=== PATIENT | female | born 1950 | race Caucasian/White ===

== ENCOUNTER → 2016-06-11 | Outpatient (CLI) | payer MEDICARE ==
--- NOTE | 2016-06-11 12:05 | US ---
EXAMINATION TYPE: US duplex aorta DATE OF EXAM: 06/11/2016 8:44 AM COMPARISON: NONE CLINICAL HISTORY: Z13.9 Screening AAA. EXAM MEASUREMENTS: Abdominal Aorta: Proximal: 2.1 x 2.2cm Mid: 1.7 x 1.9cm Distal: 1.5 x 1.5cm Bifurcation: RT: 0.9 x 0.9cm LT: 1.0 x 1.0cm TECHNOLOGIST IMPRESSION: No evidence of AAA at this time Aorta tapers normally from its visualized course. Doppler waveform appears normal. IMPRESSION: 1. Normal abdominal aorta screening ultrasound
== END | disposition home or self-care (01) ==
LOC: RADUSWWP 08:15
PROVIDERS: ATTEND Family Medicine
DX: Z13.6 Encounter for screening for cardiovascular disorders (principal)
CPT/HCPCS: 93979

== ENCOUNTER → 2018-12-30 | Outpatient (CLI) | payer MEDICARE ==
[~2018-12-30] MED LIST: REGADENOSON 0.4 MG/5 ML SYRINGE IV ONE
--- NOTE | 2018-12-30 10:53 | EST ---
EXERCISE STRESS AGE: 68 SEX: F HT: 5'10" WT: 190 PROTOCOL: Lexiscan Cardiolite Stress Test HEART RATE REST: 63 BLOOD PRESSURE REST: 145/90 MAXIMUM HEART RATE ACHIEVED: 97 MAXIMUM BLOOD PRESSURE: 184/74 INDICATIONS: Chest pain. CLINICAL INFORMATION: Baseline heart rate 63 beats per minute. Baseline blood pressure 145/90 mmHg. Baseline 12-lead ECG shows sinus rhythm with T-wave inversions inferolaterally the patient received Lexiscan infusion per protocol, no signal change in heart rate or blood pressure. However, there was pseudo normalization of the 12-lead ECG with T- waves becoming upright during the test. Patient remained asymptomatic. Nuclear portion will be reported separately. MMODL / IJN: [id number] /
--- NOTE | 2018-12-30 11:56 | NM ---
"EXAMINATION TYPE: NM stress lexiscan cardiolite DATE OF EXAM: 12/30/2018 COMPARISON: NONE HISTORY: Chest pain TECHNIQUE: After the intravenous administration of 10.9 mCi Tc 99m Sestamibi - Cardiolite resting SP ECT images acquired 65 minutes post injection. The patient received 0.4mg Lexiscan, 26.6 mCi Tc 99m Sestamibi - Stress images obtained [address] injection FINDINGS: Review of stress and rest SPECT images demonstrates decreased uptake along anterior wall left ventric le more so on stress images than on rest images towards the anteroapical location. Gated analysis sh ows normal wall motion with an estimated left ventricular ejection fraction of 65 %. 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 This message alert has been sent to Roman Cantor MD via the preferences provided by the clinician for the receipt of Radiology Critical Findings. [facility] [id number]."
== END | disposition home or self-care (01) ==
LOC: RADNMMAIN 07:25
PROVIDERS: ATTEND Family Medicine
DX: Z01.818 Encounter for other preprocedural examination (principal); R06.00 Dyspnea, unspecified
CPT/HCPCS: 93017; 78452; A9500; J2785

== ENCOUNTER 2018-12-31 11:15 | Inpatient (IN) | payer MEDICARE ==
[2018-12-31] MEDS ORDERED: NITROGLYCERIN OINT 1 INCH/GM PACKET TOPICAL STA (11:39)
[2018-12-31] MEDS ORDERED: ASPIRIN 81 MG PO STA (11:39)
--- NOTE | 2018-12-31 11:43 | ED ---
General Adult HPI - General Chief complaint: Chest Pain Stated complaint: Chest pain Time Seen by Provider: 12/31/18 11:23 Source: patient, family, RN notes reviewed Mode of arrival: ambulatory Limitations: no limitations - History of Present Illness Initial comments: Patient is a pleasant 68-year-old female presenting to emergency Department with complaints of chest discomfort. Onset of symptoms was a week ago. Patient has had 3 severe episodes. Patient has a episode this morning. Discomfort is near resolved at this point. Discomfort feels a pressure tightness in the sternal region. Patient does have some associated dyspnea and sweating. No nausea. Symptoms may be somewhat worse with exertion. No history of similar symptoms prior to the past week. Patient did see her doctor 5 or so days ago and was given antibiotics for sinus infection. Patient still has some sinus congestion. No leg pain or leg swelling. Patient is near symptom-free at this time. - Related Data Home Medications Medication Instructions Recorded Confirmed Atorvastatin Calcium [Lipitor] 10 mg PO HS 12/31/18 12/31/18 Carvedilol [Coreg] 25 mg PO BID 12/31/18 12/31/18 Furosemide [Lasix] 40 mg PO DAILY PRN 12/31/18 12/31/18 Letrozole 2.5 mg PO HS 12/31/18 12/31/18 Levofloxacin [Levaquin] 500 mg PO HS 12/31/18 12/31/18 Valsartan [Diovan] 160 mg PO HS 12/31/18 12/31/18 hydrALAZINE HCL [Apresoline] 25 mg PO BID 12/31/18 12/31/18 Allergies Allergy/AdvReac Type Severity Reaction Status Date / Time No Known Allergies Allergy Verified 12/31/18 12:16 Review of Systems ROS Statement: Those systems with pertinent positive or pertinent negative responses have been documented in the HPI. ROS Other: All systems not noted in ROS Statement are negative. Constitutional: Denies: fever Eyes: Denies: eye pain ENT: Denies: ear pain Respiratory: Reports: dyspnea. Denies: cough Cardiovascular: Reports: chest pain Endocrine: Denies: fatigue Gastrointestinal: Denies: abdominal pain, nausea, vomiting Genitourinary: Denies: dysuria Musculoskeletal: Denies: back pain Skin: Denies: rash Neurological: Denies: weakness Past Medical History Past Medical History: Cancer, Hypertension, Seizure Disorder Additional Past Medical History / Comment(s): renal & breast CA, vacular disease History of Any Multi-Drug Resistant Organisms: None Reported Past Surgical History: Appendectomy, Breast Surgery, Tubal Ligation Additional Past Surgical History / Comment(s): double mastectomy, R nephrectomy Past Psychological History: No Psychological Hx Reported Smoking Status: Never smoker Past Alcohol Use History: Rare Past Drug Use History: None Reported General Exam Limitations: no limitations General appearance: alert, in no apparent distress Head exam: Present: atraumatic Eye exam: Present: normal appearance Neck exam: Present: normal inspection Respiratory exam: Present: normal lung sounds bilaterally. Absent: chest wall tenderness Cardiovascular Exam: Present: regular rate, normal rhythm, normal heart sounds Expanded Peripheral pulses: 2+: Radial (R), Radial (L), Posterior Tibialis (R), Posterior Tibialis (L) GI/Abdominal exam: Present: soft. Absent: tenderness Extremities exam: Present: normal inspection. Absent: pedal edema, calf tenderness Neurological exam: Present: alert Psychiatric exam: Present: normal affect, normal mood Skin exam: Present: normal color Course Vital Signs 12/31/18 12/31/18 12/31/18 11:20 11:40 12:20 Temperature 97.5 F L Pulse Rate 59 L 64 57 L Respiratory 18 24 25 H Rate Blood Pressure 188/83 187/100 156/73 O2 Sat by Pulse 99 99 98 Oximetry 12/31/18 12/31/18 12:30 13:00 Temperature Pulse Rate 58 L 63 Respiratory 19 20 Rate Blood Pressure 156/73 175/91 O2 Sat by Pulse 99 Oximetry EKG Findings - EKG Comments: EKG Findings:: Sinus bradycardia 59. OK 154. QRS 86. QT 468. QTC 463. Normal axis. Septal Q waves. No acute ST change. Medical Decision Making - Medical Decision Making Patient reevaluated and resting comfortably in bed. Patient and family updated on results and plan. Dr. Cantor has been paged for admission of his patient. Heparin will be started. Cardiology will placed on consult. Admission orders written. - Lab Data Result diagrams: 12/31/18 11:45 12/31/18 11:45 Lab Results 12/31/18 12/31/18 12/31/18 Range/Units 11:45 11:45 11:45 WBC 7.6 (3.8-10.6) k/uL RBC 4.55 (3.80-5.40) m/uL Hgb 13.7 (11.4-16.0) gm/dL Hct 42.4 (34.0-46.0) % MCV 93.1 (80.0-100.0) fL MCH 30.0 (25.0-35.0) pg MCHC 32.3 (31.0-37.0) g/dL RDW 13.4 (11.5-15.5) % Plt Count 210 (150-450) k/uL Neutrophils % 56 % Lymphocytes % 30 % Monocytes % 8 % Eosinophils % 3 % Basophils % 1 % Neutrophils # 4.2 (1.3-7.7) k/uL Lymphocytes # 2.2 (1.0-4.8) k/uL Monocytes # 0.6 (0-1.0) k/uL Eosinophils # 0.3 (0-0.7) k/uL Basophils # 0.1 (0-0.2) k/uL PT 9.5 (9.0-12.0) sec INR 0.9 (<1.2) APTT 24.8 (22.0-30.0) sec D-Dimer 0.41 (<0.60) mg/L FEU Sodium 143 (137-145) mmol/L Potassium 4.2 (3.5-5.1) mmol/L Chloride 111 H (98-107) mmol/L Carbon Dioxide 22 (22-30) mmol/L Anion Gap 10 mmol/L BUN 19 H (7-17) mg/dL Creatinine 0.93 (0.52-1.04) mg/dL Est GFR (CKD-EPI)AfAm 73 (>60 ml/min/1.73 sqM) Est GFR (CKD-EPI)NonAf 63 (>60 ml/min/1.73 sqM) Glucose 95 (74-99) mg/dL Calcium 9.8 (8.4-10.2) mg/dL Magnesium 2.4 H (1.6-2.3) mg/dL Total Bilirubin 0.2 (0.2-1.3) mg/dL AST 21 (14-36) U/L ALT 22 (9-52) U/L Alkaline Phosphatase 95 (38-126) U/L Troponin I (0.000-0.034) ng/mL NT-Pro-B Natriuret Pep pg/mL Total Protein 7.6 (6.3-8.2) g/dL Albumin 4.3 (3.5-5.0) g/dL Amylase 77 (30-110) U/L Lipase 99 (23-300) U/L 12/31/18 12/31/18 Range/Units 11:45 11:45 WBC (3.8-10.6) k/uL RBC (3.80-5.40) m/uL Hgb (11.4-16.0) gm/dL Hct (34.0-46.0) % MCV (80.0-100.0) fL MCH (25.0-35.0) pg MCHC (31.0-37.0) g/dL RDW (11.5-15.5) % Plt Count (150-450) k/uL Neutrophils % % Lymphocytes % % Monocytes % % Eosinophils % % Basophils % % Neutrophils # (1.3-7.7) k/uL Lymphocytes # (1.0-4.8) k/uL Monocytes # (0-1.0) k/uL Eosinophils # (0-0.7) k/uL Basophils # (0-0.2) k/uL PT (9.0-12.0) sec INR (<1.2) APTT (22.0-30.0) sec D-Dimer (<0.60) mg/L FEU Sodium (137-145) mmol/L Potassium (3.5-5.1) mmol/L Chloride (98-107) mmol/L Carbon Dioxide (22-30) mmol/L Anion Gap mmol/L BUN (7-17) mg/dL Creatinine (0.52-1.04) mg/dL Est GFR (CKD-EPI)AfAm (>60 ml/min/1.73 sqM) Est GFR (CKD-EPI)NonAf (>60 ml/min/1.73 sqM) Glucose (74-99) mg/dL Calcium (8.4-10.2) mg/dL Magnesium (1.6-2.3) mg/dL Total Bilirubin (0.2-1.3) mg/dL AST (14-36) U/L ALT (9-52) U/L Alkaline Phosphatase (38-126) U/L Troponin I <0.012 (0.000-0.034) ng/mL NT-Pro-B Natriuret Pep 208 pg/mL Total Protein (6.3-8.2) g/dL Albumin (3.5-5.0) g/dL Amylase (30-110) U/L Lipase (23-300) U/L - Radiology Data Radiology results: image reviewed (Chest x-ray shows no acute process) Critical Care Time Critical Care Time: Yes Total Critical Care Time: 32 Disposition Clinical Impression: Unstable angina pectoris Disposition: ADMITTED IP TO THIS HOSP Is patient prescribed a controlled substance at d/c from ED?: No Referrals: Roman Cantor MD [Primary Care Provider] - 1-2 days Decision Time: 13:36
[2018-12-31 12:01] LABS: Basophils # (A) 0.1 k/uL (0-0.2); Basophils % (A) 1 %; Eosinophils # (A) 0.3 k/uL (0-0.7); Eosinophils % (A) 3 %; HCT 42.4 % (34.0-46.0); HGB 13.7 gm/dL (11.4-16.0); Lymphocytes # (A) 2.2 k/uL (1.0-4.8); Lymphocytes % (A) 30 %; MCHC 32.3 g/dL (31.0-37.0); MCV 93.1 fL (80.0-100.0); Mean Platelet Volume 8.3; Monocytes # (A) 0.6 k/uL (0-1.0); Monocytes % (A) 8 %; Neutrophils # (A) 4.2 k/uL (1.3-7.7); Neutrophils % (A) 56 %; Platelet Count 210 k/uL (150-450); RBC 4.55 m/uL (3.80-5.40); RDW 13.4 % (11.5-15.5); WBC 7.6 k/uL (3.8-10.6)
[2018-12-31 12:14] LABS: D-Dimer 0.41 mg/L FEU (<0.60); INR 0.9 (<1.2); Partial Thromboplastin Time 24.8 sec (22.0-30.0); Prothrombin Time 9.5 sec (9.0-12.0)
--- NOTE | 2018-12-31 12:29 | XR ---
EXAMINATION TYPE: XR chest 2V DATE OF EXAM: 12/31/2018 COMPARISON: NONE TECHNIQUE: PA and lateral views submitted. HISTORY: Chest pain FINDINGS: The lungs are clear and there is no pneumothorax, pleural effusion, or focal pneumonia. Hyperinflat ion suggests COPD. Diffuse osteopenia. Postsurgical change overlying the right chest. No overt failur e. Heart size normal. Arthropathy of the shoulders. Degenerative changes of the spine. IMPRESSION: 1. No acute process.
[2018-12-31 12:42] LABS: Albumin 4.3 g/dL (3.5-5.0); Calcium 9.8 mg/dL (8.4-10.2); Magnesium 2.4 mg/dL (1.6-2.3); Potassium 4.2 mmol/L (3.5-5.1); Total Bilirubin 0.2 mg/dL (0.2-1.3); Total Protein 7.6 g/dL (6.3-8.2)
[2018-12-31] MEDS ORDERED: HEPARIN SODIUM,PORCINE 5,000 UNIT/ML 1 ML VIAL IV ONE (13:36)
[2018-12-31] MEDS ORDERED: NITROGLYCERIN SL TABS 0.4 MG TAB SUBLINGUAL PRN (13:36)
[2018-12-31] MEDS ORDERED: HEPARIN SODIUM,PORCINE 5,000 UNIT/ML 1 ML VIAL IV PRN (13:36)
[2018-12-31] MEDS ORDERED: HEPARIN SOD,PORK IN 0.45% NACL 25,000 UNIT in 0.45% NACL 1 250ML.BAG IV SCH (13:45)
[2018-12-31] MEDS: ATORVASTATIN 80 MG TAB PO SCH (13:55)
[2018-12-31 15:05] VITALS: BMI 27.2
[2018-12-31] MEDS: NITROGLYCERIN OINT 1 INCH/GM PACKET TOPICAL SCH (17:32)
[2018-12-31] MEDS: CARVEDILOL 3.125 MG TAB PO SCH (17:32)
[2018-12-31] MEDS: SODIUM CHLORIDE 0.9% 1,000 ML IV SCH (17:36)
--- NOTE | 2018-12-31 17:48 | P.HPIM ---
History of Present Illness 68-year-old pleasant female came in emergency department with compensative chest discomfort patient was a sent back here because of positive stress and patient underwent stress test because of her constant the on and off chest pain as an outpatient. Patient chest pain is typical pressure-like sensation radiating to the left arm and neck. Patient denied any fever chills patient and nausea vomiting cough. Patient has in the lateral kidney patient will be started on IV fluids patient had history of renal cancer because of which patient had nephrectomy in the past. Patient is also on levofloxacin for sinusitis. Had 5 days of antibiotics so far. was also having exertional shortness of breath is not a smoker no pneumonia on the chest x-ray Review of Systems REVIEW OF SYSTEMS: CONSTITUTIONAL: No fever, no malaise, no fatigue. HEENT: No recent visual problems or hearing problems. Denied any sore throat. CARDIOVASCULAR: No orthopnea, PND, no palpitations, no syncope. PULMONARY: No shortness of breath, no cough, no hemoptysis. GASTROINTESTINAL: No diarrhea, no nausea, no vomiting, no abdominal pain. NEUROLOGICAL: No headaches, no weakness, no numbness. HEMATOLOGICAL: Denies any bleeding or petechiae. GENITOURINARY: Denies any burning micturition, frequency, or urgency. MUSCULOSKELETAL/RHEUMATOLOGICAL: Denies any joint pain, swelling, or any muscle pain. ENDOCRINE: Denies any polyuria or polydipsia. The rest of the 14-point review of systems is negative. Past Medical History Past Medical History: Cancer, Hypertension, Seizure Disorder Additional Past Medical History / Comment(s): renal & breast CA, vascular disease -bilat legs, last seizure when she was a child History of Any Multi-Drug Resistant Organisms: None Reported Past Surgical History: Appendectomy, Breast Surgery, Tubal Ligation Additional Past Surgical History / Comment(s): double mastectomy, R nephrectomy Past Anesthesia/Blood Transfusion Reactions: No Reported Reaction Past Psychological History: No Psychological Hx Reported Smoking Status: Never smoker Past Alcohol Use History: Rare Past Drug Use History: None Reported Medications and Allergies Home Medications Medication Instructions Recorded Confirmed Type Atorvastatin Calcium [Lipitor] 10 mg PO HS 12/31/18 12/31/18 History Carvedilol [Coreg] 25 mg PO BID 12/31/18 12/31/18 History Furosemide [Lasix] 40 mg PO DAILY PRN 12/31/18 12/31/18 History Letrozole 2.5 mg PO HS 12/31/18 12/31/18 History Levofloxacin [Levaquin] 500 mg PO HS 12/31/18 12/31/18 History Valsartan [Diovan] 160 mg PO HS 12/31/18 12/31/18 History hydrALAZINE HCL [Apresoline] 25 mg PO BID 12/31/18 12/31/18 History Allergies Allergy/AdvReac Type Severity Reaction Status Date / Time No Known Allergies Allergy Verified 12/31/18 12:16 Physical Exam Vitals: Vital Signs Temp Pulse Pulse Resp BP BP Pulse Ox 12/31/18 16:00 70 16 126/75 12/31/18 14:29 97.3 F L 70 16 192/91 97 12/31/18 14:02 62 18 163/99 98 12/31/18 13:00 63 20 175/91 12/31/18 12:30 58 L 19 156/73 99 12/31/18 12:20 57 L 25 H 156/73 98 12/31/18 11:40 64 24 187/100 99 12/31/18 11:20 97.5 F L 59 L 18 188/83 99 Intake and Output 12/31/18 12/31/18 12/31/18 06:59 14:59 22:59 Other: Voiding Method Toilet Weight 86.183 kg PHYSICAL EXAMINATION: GENERAL: The patient is alert and oriented x3, not in any acute distress. Well developed, well nourished. HEENT: Pupils are round and equally reacting to light. EOMI. No scleral icterus. No conjunctival pallor. Normocephalic, atraumatic. No pharyngeal erythema. No thyromegaly. CARDIOVASCULAR: S1 and S2 present. No murmurs, rubs, or gallops. PULMONARY: Chest is clear to auscultation, no wheezing or crackles. ABDOMEN: Soft, nontender, nondistended, normoactive bowel sounds. No palpable organomegaly. MUSCULOSKELETAL: No joint swelling or deformity. EXTREMITIES: No cyanosis, clubbing, or pedal edema. NEUROLOGICAL: Gross neurological examination did not reveal any focal deficits. SKIN: No rashes. Results CBC & Chem 7: 12/31/18 11:45 12/31/18 11:45 Labs: Abnormal Lab Results - Last 24 Hours (Table) 12/31/18 Range/Units 11:45 Chloride 111 H (98-107) mmol/L BUN 19 H (7-17) mg/dL Magnesium 2.4 H (1.6-2.3) mg/dL Thrombosis Risk Factor Assmnt - Choose All That Apply Any of the Below Risk Factors Present?: Yes Each Factor Represents 1 point: Obesity (BMI >25) Other Risk Factors: Yes Each Risk Factor Represents 2 Points: Age 61-74 years Thrombosis Risk Factor Assessment Total Risk Factor Score: 3 Thrombosis Risk Factor Assessment Level: Moderate Risk Assessment and Plan Plan: -Positive stress test, possible unstable angina: Patient will undergo cardiac catheterization tomorrow patient will be started on IV fluids, nitroglycerin and beta yosvany along with aspirin. -Sinusitis: Patient will be continued on levofloxacin will need the antibiotic only today and tomorrow -Hypertension resume his her home medications except for Lasix as patient is receiving IV fluids at this time -History of renal cell cancer status post nephrectomy and patient has unilateral kidney -Seizure disorder -Hyperlipidemia
[2018-12-31] MEDS ORDERED: NON-FORMULARY DRUG (Carvedilol [Coreg] 25 MG) PO SCH (21:00)
[2018-12-31] MEDS ORDERED: ATORVASTATIN 10 MG TAB PO SCH (21:00)
[2018-12-31] MEDS ORDERED: ACETAMINOPHEN TAB 325 MG TAB PO STA (21:34)
[2018-12-31] MEDS: LEVOFLOXACIN 500 MG TAB PO SCH (21:35)
[2018-12-31] MEDS: VALSARTAN 160 MG TAB PO SCH (21:35)
[2018-12-31] MEDS: LETROZOLE 2.5 MG TAB PO SCH (21:35)
[2019-01-01] MEDS ORDERED: hydrALAZINE HCL 20 MG/ML 1 ML VIAL IVP PRN (00:53)
[2019-01-01] MEDS: NITROGLYCERIN OINT 1 INCH/GM PACKET TOPICAL SCH ×2 (02:32→06:45)
[2019-01-01 04:36] LABS: Mean Platelet Volume 8.7; Platelet Count 193 k/uL (150-450)
[2019-01-01] MEDS ORDERED: ACETAMINOPHEN TAB 325 MG TAB PO STA (06:44)
[2019-01-01] MEDS: SODIUM CHLORIDE 0.9% 1,000 ML IV SCH ×2 (06:45→20:48)
[2019-01-01] MEDS ORDERED: ASPIRIN 325 MG TAB PO SCH (09:00)
[2019-01-01] MEDS ORDERED: ALPRAZolam 0.5 MG TAB PO PRN (09:38)
[2019-01-01] MEDS ORDERED: ALPRAZolam 0.25 MG TAB PO PRN (09:38)
[2019-01-01] MEDS: ATORVASTATIN 80 MG TAB PO SCH (09:39)
[2019-01-01] MEDS: CARVEDILOL 12.5 MG TAB PO SCH ×2 (09:40→17:33)
[2019-01-01] MEDS ORDERED: ASPIRIN 81 MG PO SCH (09:45)
--- NOTE | 2019-01-01 09:51 | P.CRDCN ---
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 Brock/Clarice Gonzalez/Jackie Dumont within 1-2 weeks post cath Past Medical History Past Medical History: Cancer, Hypertension, Seizure Disorder Additional Past Medical History / Comment(s): renal & breast CA, vascular disease -bilat legs, last seizure when she was a child History of Any Multi-Drug Resistant Organisms: None Reported Past Surgical History: Appendectomy, Breast Surgery, Tubal Ligation Additional Past Surgical History / Comment(s): double mastectomy, R nephrectomy Past Anesthesia/Blood Transfusion Reactions: No Reported Reaction Past Psychological History: No Psychological Hx Reported Smoking Status: Never smoker Past Alcohol Use History: Rare Past Drug Use History: None Reported Medications and Allergies Home Medications Medication Instructions Recorded Confirmed Type Atorvastatin Calcium [Lipitor] 10 mg PO HS 12/31/18 12/31/18 History Carvedilol [Coreg] 25 mg PO BID 12/31/18 12/31/18 History Furosemide [Lasix] 40 mg PO DAILY PRN 12/31/18 12/31/18 History Letrozole 2.5 mg PO HS 12/31/18 12/31/18 History Levofloxacin [Levaquin] 500 mg PO HS 12/31/18 12/31/18 History Valsartan [Diovan] 160 mg PO HS 12/31/18 12/31/18 History hydrALAZINE HCL [Apresoline] 25 mg PO BID 12/31/18 12/31/18 History Allergies Allergy/AdvReac Type Severity Reaction Status Date / Time No Known Allergies Allergy Verified 12/31/18 12:16 Physical Exam Vitals: Vital Signs Temp Pulse Pulse Pulse Resp BP BP 01/01/19 08:00 98.1 F 70 18 172/79 01/01/19 07:26 01/01/19 03:42 97.8 F 73 16 176/76 01/01/19 00:00 98 F 69 16 185/97 12/31/18 20:00 97.8 F 66 17 133/77 12/31/18 16:00 70 16 126/75 12/31/18 14:29 97.3 F L 70 16 192/91 12/31/18 14:02 62 18 163/99 12/31/18 13:00 63 20 175/91 12/31/18 12:30 58 L 19 156/73 12/31/18 12:20 57 L 25 H 156/73 12/31/18 11:40 64 24 187/100 12/31/18 11:20 97.5 F L 59 L 18 188/83 Pulse Ox 01/01/19 08:00 98 01/01/19 07:26 97 01/01/19 03:42 98 01/01/19 00:00 94 L 12/31/18 20:00 95 12/31/18 16:00 12/31/18 14:29 97 12/31/18 14:02 98 12/31/18 13:00 12/31/18 12:30 99 12/31/18 12:20 98 12/31/18 11:40 99 12/31/18 11:20 99 Intake and Output 12/31/18 01/01/19 01/01/19 22:59 06:59 14:59 Intake Total 73.645 62.331 Balance 73.645 62.331 Intake: Intake, IV Titration 73.645 62.331 Amount Heparin Sod,Pork in 0.45% 73.645 62.331 NaCl 25,000 unit In 0.45 % NaCl 1 250ml.bag @ 11.6 UNITS/KG/HR 9.997 mls/hr IV .Q24H [facility] Rx#: [id number] Other: Voiding Method Toilet Toilet # Voids 2 Results 01/01/19 03:46 12/31/18 11:45 Cardiac Enzymes 12/31/18 12/31/18 12/31/18 Range/Units 11:45 11:45 18:31 AST 21 (14-36) U/L Troponin I <0.012 <0.012 (0.000-0.034) ng/mL 12/31/18 Range/Units 23:29 AST (14-36) U/L Troponin I <0.012 (0.000-0.034) ng/mL Coagulation 12/31/18 12/31/18 01/01/19 Range/Units 11:45 20:27 03:46 PT 9.5 (9.0-12.0) sec APTT 24.8 92.8 H 40.6 H (22.0-30.0) sec CBC 12/31/18 01/01/19 Range/Units 11:45 03:46 WBC 7.6 (3.8-10.6) k/uL RBC 4.55 (3.80-5.40) m/uL Hgb 13.7 (11.4-16.0) gm/dL Hct 42.4 (34.0-46.0) % Plt Count 210 193 (150-450) k/uL Comprehensive Metabolic Panel 12/31/18 Range/Units 11:45 Sodium 143 (137-145) mmol/L Potassium 4.2 (3.5-5.1) mmol/L Chloride 111 H (98-107) mmol/L Carbon Dioxide 22 (22-30) mmol/L BUN 19 H (7-17) mg/dL Creatinine 0.93 (0.52-1.04) mg/dL Glucose 95 (74-99) mg/dL Calcium 9.8 (8.4-10.2) mg/dL AST 21 (14-36) U/L ALT 22 (9-52) U/L Alkaline Phosphatase 95 (38-126) U/L Total Protein 7.6 (6.3-8.2) g/dL Albumin 4.3 (3.5-5.0) g/dL Current Medications Generic Name Dose Route Start Last Admin Trade Name Freq PRN Reason Stop Dose Admin Alprazolam 0.25 mg 01/01/19 09:38 Xanax PO Q6HR PRN Mild Anxiety Alprazolam 0.5 mg 01/01/19 09:38 Xanax PO Q6HR PRN Moderate Anxiety Aspirin 243 mg 01/01/19 09:45 Aspirin PO DAILY CARMELITA Atorvastatin Calcium 80 mg 12/31/18 13:45 01/01/19 09:39 Lipitor PO 80 mg DAILY CARMELITA Administration Carvedilol 25 mg 01/01/19 09:15 01/01/19 09:40 Coreg PO 25 mg BID-W/MEALS CARMELITA Administration Heparin Sodium (Porcine) 0 unit 12/31/18 13:36 Heparin IV Q6HR PRN Low PTT Protocol Sodium Chloride 1,000 mls @ 75 mls/hr 12/31/18 17:00 01/01/19 06:45 Saline 0.9% IV Not Given .[id number] CARMELITA Letrozole 2.5 mg 12/31/18 21:00 12/31/18 21:35 Femara PO 2.5 mg HS CARMELITA Administration Levofloxacin 500 mg 12/31/18 21:00 12/31/18 21:35 Levaquin PO 01/04/19 21:01 500 mg HS CARMELITA Administration Nifedipine 60 mg 01/01/19 09:15 01/01/19 09:40 Procardia Xl PO 60 mg DAILY CARMELITA Administration Nitroglycerin 0.4 mg 12/31/18 13:36 Nitrostat SUBLINGUAL Q5M PRN Chest Pain Sodium Chloride 10 ml 12/31/18 21:00 01/01/19 09:41 Saline Flush IV 10 ml BID CARMELITA Administration Valsartan 160 mg 12/31/18 21:00 12/31/18 21:35 Diovan PO 160 mg HS CARMELITA Administration Intake and Output 12/31/18 01/01/19 01/01/19 22:59 06:59 14:59 Intake Total 73.645 62.331 Balance 73.645 62.331 Intake: Intake, IV Titration 73.645 62.331 Amount Heparin Sod,Pork in 0.45% 73.645 62.331 NaCl 25,000 unit In 0.45 % NaCl 1 250ml.bag @ 11.6 UNITS/KG/HR 9.997 mls/hr IV .Q24H [facility] Rx#: [id number] Other: Voiding Method Toilet Toilet # Voids 2 01/01/19 03:46 12/31/18 11:45
[2019-01-01 10:15] LABS: Cholesterol 126 mg/dL (<200); HDL Cholesterol 54 mg/dL (40-60); LDL Cholesterol,Calculated 46 mg/dL (0-99); Triglycerides 132 mg/dL (<150)
--- NOTE | 2019-01-01 11:16 | ECHOF ---
Referral Reason:abn stress test, sob MEASUREMENTS -------- HEIGHT: 177.8 cm WEIGHT: 86.2 kg BP: 192/91 RVIDd: 3.1 cm (< 3.3) IVSd: 1.2 cm (0.6 - 1.1) LVIDd: 4.1 cm (3.9 - 5.3) LVPWd: 1.1 cm (0.6 - 1.1) IVSs: 1.5 cm LVIDs: 3.0 cm LVPWs: 1.4 cm LA Diam: 3.1 cm (2.7 - 3.8) LAESV Index (A-L): 15.19 ml/m Ao Diam: 2.8 cm (2.0 - 3.7) AV Cusp: 1.7 cm (1.5 - 2.6) MV EXCURSION: 11.540 mm (> 18.000) MV EF SLOPE: 35 mm/s (70 - 150) EPSS: 1.0 cm MV E Noam: 0.97 m/s MV DecT: 319 ms MV A Noam: 1.18 m/s MV E/A Ratio: 0.82 AV maxP.15 mmHg AV maxP.15 mmHg AV meanP.85 mmHg RAP: 5.00 mmHg RVSP: 25.60 mmHg FINDINGS -------- Sinus rhythm. This was a technically adequate study. The left ventricular size is normal. There is borderline concentric left ventricular hypertrophy. Overall left ventricular systolic function is normal with, an EF between 60 - 65 %. The right ventricle is normal in size. Normal LA size by volume 22+/-6 ml/m2. The right atrium is normal in size. Interatrial and interventricular septum intact. The aortic valve is trileaflet and appears structurally normal. The mitral valve leaflets are mildly thickened. Mild tricuspid regurgitation present. Right ventricular systolic pressure is normal at < 35 mmHg. Trace/mild (physiologic) pulmonic regurgitation. The aortic root size is normal. Normal inferior vena cava with normal inspiratory collapse consistent with estimated right atrial pre ssure of 5 mmHg. There is no pericardial effusion. CONCLUSIONS -------- 1. Sinus rhythm. 2. This was a technically adequate study. 3. The left ventricular size is normal. 4. There is borderline concentric left ventricular hypertrophy. 5. Overall left ventricular systolic function is normal with, an EF between 60 - 65 %. 6. The right ventricle is normal in size. 7. Normal LA size by volume 22+/-6 ml/m2. 8. The right atrium is normal in size. 9. Interatrial and interventricular septum intact. 10. The aortic valve is trileaflet and appears structurally normal. 11. The mitral valve leaflets are mildly thickened. 12. Mild tricuspid regurgitation present. 13. Right ventricular systolic pressure is normal at < 35 mmHg. 14. Trace/mild (physiologic) pulmonic regurgitation. 15. The aortic root size is normal. 16. Normal inferior vena cava with normal inspiratory collapse consistent with estimated right atrial pressure of 5 mmHg. 17. There is no pericardial effusion. EAR MACHINE OPERATOR: Dona Bradshaw RDCS
--- NOTE | 2019-01-01 12:17 | US ---
EXAMINATION TYPE: US renal artery duplex complet DATE OF EXAM: 01/01/2019 COMPARISON: NONE CLINICAL HISTORY: uncontrolled htn. MEASUREMENTS: RENAL SIZE: Rt Kidney: Surgically absent Lt Kidney: 11.9 x 5.9 x 5.2cm RESISTANCE INDEX Right: Surgically absent Left: 0.69 RA/AO RATIO (< 3.5 ) Right: Surgically absent Left: 1.9 RA VELOCITY ( < 180 cm/s) Right: Surgically absent Left: 289 cm/s Unable to visualized distal renal artery due to overlying bowel gas. Elevated velocity seen proximall y, however ratio is normal. Otherwise wnl. IMPRESSION: 1. Limited exam suggest previous right nephrectomy. Resistive index on the left measures within ina l limits.
[2019-01-01] MEDS ORDERED: fentaNYL (PF) 50 MCG/ML 2 ML AMP IV ONE (12:25)
[2019-01-01] MEDS ORDERED: MIDAZOLAM (PF) 2 MG/2 ML VIAL IVP ONE (12:25)
[2019-01-01] MEDS ORDERED: LIDOCAINE 1% INJ 10MG/ML (20 ML MDV) SQ ONE (12:28)
[2019-01-01] MEDS ORDERED: IV FLUID CONTINUATION 500 ML IV ONE (12:32)
[2019-01-01] MEDS ORDERED: NITROGLYCERIN SL TABS 0.4 MG TAB SUBLINGUAL ONE (12:37)
[2019-01-01] MEDS ORDERED: IOPAMIDOL-370 100ML BTL INJ ONE (12:48)
--- NOTE | 2019-01-01 13:16 | CC ---
CARDIAC CATHETERIZATION REPORT Mrs. Elias is a 68-year-old female who has been having symptoms of exertional shortness of breath. The patient's stress test showed evidence of anterior apical ischemia. In view of that, the patient was recommended to have a cardiac catheterization for definitive diagnosis. PROCEDURE: The right groin was prepped and draped in the usual manner and the right femoral artery was entered using Seldinger technique under ultrasound guidance and micropuncture needle. A #6-[place] sheath was placed in. Selective coronary angiography was then performed in multiple projections and the left ventricular pressures were obtained. Patient tolerated the procedure well. Sheath was removed and good hemostasis was achieved with the use of Angio-Seal. Moderate sedation was used. Total sedation time was 19 minutes. Left main coronary artery is normal and patent. LAD is a good caliber blood vessel and gives rise to small size diagonal branch. There is a minimal irregularity in the LAD. There was a good size intermediate branch which is normal. Circumflex coronary artery is a codominant distribution and gives rise to good size PLV and the PDA branch appears normal. Right coronary artery also is codominant distribution and gives rise to small size PDA and it is normal. The left ventricular end-diastolic pressure is 4 to 6 mmHg prior to angiography. No gradient is noted across the aortic valve. FINAL IMPRESSION: This study shows minimal irregularity in LAD. Circumflex and right coronary arteries are normal. Left ventricular end-diastolic pressure is normal. RECOMMENDATION: Recommend maximize medical treatment and blood pressure control. MMODL / IJN: [id number] /
[2019-01-01] MEDS: ACETAMINOPHEN TAB 325 MG TAB PO PRN ×2 (13:21→20:50)
[2019-01-01] MEDS ORDERED: RX INFO: IV CONTRAST WAS GIVEN 1 EACH MISC MISCELLANE PRN (13:58)
--- NOTE | 2019-01-01 14:39 | P.PN ---
Subjective 68-year-old the female was admitted for positive stress test patient underwent therapeutic ablation which did not show any significant atherosclerotic occlusive disease that will need intervention.patient is being hydrated because of unilateral kidney and the cardiology is according hydration tonight and possibility of discharge tomorrow Constitutional: Denied any fatigue denied any fever. Cardio vascular: denied any chest pain, palpitations Gastrointestinal denied any nausea vomiting Pulmonary: Denied any shortness of breath cough Neurologic denied any new focal deficits All inpatient medications were reviewed and appropriate changes in these medications as dictated in the interval history and assessment and plan. Objective - Vital Signs Vital signs: Vital Signs Temp 98.0 F 01/01/19 12:00 Pulse 61 01/01/19 12:00 Resp 16 01/01/19 12:00 BP 157/86 01/01/19 12:00 Pulse Ox 98 01/01/19 12:00 Intake & Output 12/31/18 01/01/19 01/01/19 18:59 06:59 18:59 Intake Total 135.976 50 Balance 135.976 50 Weight 86.183 kg Intake: IV 50 Intake, IV Titration 135.976 Amount Heparin Sod,Pork in 0.45% 135.976 NaCl 25,000 unit In 0.45 % NaCl 1 250ml.bag @ 11.6 UNITS/KG/HR 9.997 mls/hr IV .Q24H [facility], [facility]–1983 Rx#: [id number] Other: Voiding Method Toilet Toilet Toilet # Voids 2 - Exam PHYSICAL EXAMINATION: GENERAL: The patient is alert and oriented x3, not in any acute distress. Well developed, well nourished. HEENT: Pupils are round and equally reacting to light. EOMI. No scleral icterus. No conjunctival pallor. Normocephalic, atraumatic. No pharyngeal erythema. No thyromegaly. CARDIOVASCULAR: S1 and S2 present. No murmurs, rubs, or gallops. PULMONARY: Chest is clear to auscultation, no wheezing or crackles. ABDOMEN: Soft, nontender, nondistended, normoactive bowel sounds. No palpable organomegaly. MUSCULOSKELETAL: No joint swelling or deformity. EXTREMITIES: No cyanosis, clubbing, or pedal edema. NEUROLOGICAL: Gross neurological examination did not reveal any focal deficits. SKIN: No rashes. - Labs CBC & Chem 7: 01/01/19 03:46 12/31/18 11:45 Labs: Abnormal Lab Results - Last 24 Hours (Table) 12/31/18 01/01/19 Range/Units 20:27 03:46 APTT 92.8 H 40.6 H (22.0-30.0) sec Assessment and Plan Plan: -Positive stress test, and chest pain, cardiac catheterization did not reveal any significant atherosclerotic coronary vascular disease -Sinusitis: Patient will be continued on levofloxacin , will not require any antibiotics upon discharge -Hypertension resumed her home medications except for Lasix as patient is receiving IV fluids at this time -History of renal cell cancer status post nephrectomy and patient has unilateral kidney -Seizure disorder -Hyperlipidemia
--- NOTE | 2019-01-01 14:44 | P.CRDCN ---
History of Present Illness History of present illness: This is a pleasant 68-year-old female past medical history significant for breast cancer status post mastectomy, renal cancer status post right nephrectomy, hypertension and seizure disorder. She denies history of coronary artery disease. We have been asked to see her in consultation secondary to abnormal stress test with chest pain suggestive of unstable angina. She states since April she has been feeling shortness of breath with exertion. Minimal activity such as walking around her neighborhood are up and down stairs cause her significant shortness of breath. She attributed this to her recent diagnosis of renal cancer. However her symptoms continued to persist and became much more frequent in nature. She then started experiencing heaviness in her chest after that shortness of breath. She saw her primary care physician underwent outpatient stress testing which revealed evidence of reversible ischemia in the anterior distribution. For this reason she was sent to the hospital for further evaluation. She is seen and examined resting comfortably in bed in no acute distress. She complains only of a headache. She denies active chest discomfort, shortness of breath, dizziness or palpitations. EKG reveals sinus mechanism with poor R-wave progression. Chest x-ray negative for an acute cardiopulmonary process. Laboratory data reviewed, WBC 7.6, hemoglobin 13.7, platelets 193, d-dimer 0.41, sodium 143, potassium 4.2, creatinine 0.93, magnesium 2.4, cardiac enzymes negative 3, proBNP 8, LDL 46. Daily current cardiac medications include Coreg 25 mg twice a day, Lasix 40 mg daily as needed, valsartan 160 mg daily, hydralazine 25 mg twice a day and a torvastatin 10 mg daily. At the time of my exam: CONSTITUTIONAL: Denies fever. Denies chills. EYES: Denies blurred vision. Denies vision changes. Denies eye pain. EARS, NOSE, MOUTH & THROAT: Denies headache. Denies sore throat. Denies ear pain. CARDIOVASCULAR: Denies chest pain. Denies shortness of breath. Denies orthopnea. Denies PND. Denies palpitations. RESPIRATORY: Denies cough. GASTROINTESTINAL: Denies abdominal pain. Denies diarrhea. Denies constipation. Denies nausea. Denies vomiting. MUSCULOSKELETAL: Denies myalgias. INTEGUMENTARY: Denies pruitis. Denies rash. NEUROLOGIC: Denies numbness. Denies tingling. Denies weakness. PSYCHIATRIC: Denies anxiety. Denies depression. ENDOCRINE: Denies fatigue. Denies weight change. Denies polydipsia. Denies polyurina. GENITOURINARY: Denies burning, hematuria or urgency with micturation. HEMATOLOGIC: Denies history of anemia. Denies bleeding. Blood pressure 157/86 heart rate 61 afebrile maintaining oxygen saturation on room air GENERAL: This is a 68-year-old female in no apparent distress at the time of my examination. HEENT: Head is atraumatic, normocephalic. Pupils are equal, round. Sclerae anicteric. Conjunctivae are clear. Mucous membranes of the mouth are moist. Neck is supple. There is no jugular venous distention. No carotid bruit is heard. LUNGS: Clear to auscultation no wheezes, rales or rhonchi. No chest wall t enderness is noted on palpation or with deep breathing. HEART: Regular rate and rhythm without murmurs, rubs or gallops. S1 and S2 heard. ABDOMEN: Soft, nontender. Bowel sounds are heard. No organomegaly noted. EXTREMITIES: No evidence of peripheral edema and no calf tenderness noted. VASCULAR: Radial and dorsalis pedis pulses palpated, no evidence of clubbing. NEUROLOGIC: Patient is awake, alert and oriented x3. ASSESSMENT Unstable angina Hypertension, uncontrolled History of renal carcinoma status post nephrectomy History of breast cancer status post mastectomy Dyslipidemia PLAN Recommend proceeding with cardiac catheterization. I have discussed the risks, benefits and alternative therapies for the above-mentioned procedure and for both sedation/analgesia as well as necessary blood product administration, if indicated, as they pertain to this patient. The patient has indicated un derstanding and acceptance of the risks and procedures discussed. Lengthy discussion had with the patient and her regarding the risk of kidney damage with contrast use. He understands this risk. Questions have been answered appropriately and the patient and her agree to move forward with the above stated procedure. Hydrate the patient and normal saline 75 mL per hour before the procedure and thereafter for 24 hours. Repeat BMP in the morning. Discontinue when necessary hydralazine and initiated on Procardia XL 60 mg daily. Continue carvedilol and valsartan as previously ordered. Obtain renal artery duplex. Further recommendations to follow based upon clinical course. Thank you kindly for this consultation. Nurse Practitioner note has been reviewed, I agree with a documented findings and plan of care. Patient was seen and examined. Past Medical History Past Medical History: Cancer, Hypertension, Seizure Disorder Additional Past Medical History / Comment(s): renal & breast CA, vascular disease -bilat legs, last seizure when she was a child History of Any Multi-Drug Resistant Organisms: None Reported Past Surgical History: Appendectomy, Breast Surgery, Tubal Ligation Additional Past Surgical History / Comment(s): double mastectomy, R nephrectomy Past Anesthesia/Blood Transfusion Reactions: No Reported Reaction Past Psychological History: No Psychological Hx Reported Smoking Status: Never smoker Past Alcohol Use History: Rare Past Drug Use History: None Reported Medications and Allergies Home Medications Medication Instructions Recorded Confirmed Type Atorvastatin Calcium [Lipitor] 10 mg PO HS 12/31/18 12/31/18 History Carvedilol [Coreg] 25 mg PO BID 12/31/18 12/31/18 History Furosemide [Lasix] 40 mg PO DAILY PRN 12/31/18 12/31/18 History Letrozole 2.5 mg PO HS 12/31/18 12/31/18 History Levofloxacin [Levaquin] 500 mg PO HS 12/31/18 12/31/18 History Valsartan [Diovan] 160 mg PO HS 12/31/18 12/31/18 History hydrALAZINE HCL [Apresoline] 25 mg PO BID 12/31/18 12/31/18 History Allergies Allergy/AdvReac Type Severity Reaction Status Date / Time No Known Allergies Allergy Verified 12/31/18 12:16 Physical Exam Vitals: Vital Signs Temp Pulse Pulse Pulse Resp BP BP 01/01/19 07:26 01/01/19 03:42 97.8 F 73 16 176/76 01/01/19 00:00 98 F 69 16 185/97 12/31/18 20:00 97.8 F 66 17 133/77 12/31/18 16:00 70 16 126/75 12/31/18 14:29 97.3 F L 70 16 192/91 12/31/18 14:02 62 18 163/99 12/31/18 13:00 63 20 175/91 12/31/18 12:30 58 L 19 156/73 12/31/18 12:20 57 L 25 H 156/73 12/31/18 11:40 64 24 187/100 12/31/18 11:20 97.5 F L 59 L 18 188/83 Pulse Ox 01/01/19 07:26 97 01/01/19 03:42 98 01/01/19 00:00 94 L 12/31/18 20:00 95 12/31/18 16:00 12/31/18 14:29 97 12/31/18 14:02 98 12/31/18 13:00 12/31/18 12:30 99 12/31/18 12:20 98 12/31/18 11:40 99 12/31/18 11:20 99 Intake and Output 12/31/18 01/01/19 01/01/19 22:59 06:59 14:59 Intake Total 73.645 62.331 Balance 73.645 62.331 Intake: Intake, IV Titration 73.645 62.331 Amount Heparin Sod,Pork in 0.45% 73.645 62.331 NaCl 25,000 unit In 0.45 % NaCl 1 250ml.bag @ 11.6 UNITS/KG/HR 9.997 mls/hr IV .Q24H [facility] Rx#: [id number] Other: Voiding Method Toilet Toilet # Voids 2 Results 01/01/19 03:46 12/31/18 11:45 Cardiac Enzymes 12/31/18 12/31/18 12/31/18 Range/Units 11:45 11:45 18:31 AST 21 (14-36) U/L Troponin I <0.012 <0.012 (0.000-0.034) ng/mL 12/31/18 Range/Units 23:29 AST (14-36) U/L Troponin I <0.012 (0.000-0.034) ng/mL Coagulation 12/31/18 12/31/18 01/01/19 Range/Units 11:45 20:27 03:46 PT 9.5 (9.0-12.0) sec APTT 24.8 92.8 H 40.6 H (22.0-30.0) sec CBC 12/31/18 01/01/19 Range/Units 11:45 03:46 WBC 7.6 (3.8-10.6) k/uL RBC 4.55 (3.80-5.40) m/uL Hgb 13.7 (11.4-16.0) gm/dL Hct 42.4 (34.0-46.0) % Plt Count 210 193 (150-450) k/uL Comprehensive Metabolic Panel 12/31/18 Range/Units 11:45 Sodium 143 (137-145) mmol/L Potassium 4.2 (3.5-5.1) mmol/L Chloride 111 H (98-107) mmol/L Carbon Dioxide 22 (22-30) mmol/L BUN 19 H (7-17) mg/dL Creatinine 0.93 (0.52-1.04) mg/dL Glucose 95 (74-99) mg/dL Calcium 9.8 (8.4-10.2) mg/dL AST 21 (14-36) U/L ALT 22 (9-52) U/L Alkaline Phosphatase 95 (38-126) U/L Total Protein 7.6 (6.3-8.2) g/dL Albumin 4.3 (3.5-5.0) g/dL Current Medications Generic Name Dose Route Start Last Admin Trade Name Freq PRN Reason Stop Dose Admin Aspirin 325 mg 01/01/19 09:00 Aspirin PO DAILY [facility] Atorvastatin Calcium 80 mg 12/31/18 13:45 12/31/18 13:55 Lipitor PO 80 mg DAILY [facility] Administration Carvedilol 3.125 mg 12/31/18 17:30 12/31/18 17:32 Coreg PO 3.125 mg BID-W/MEALS [facility] Administration Heparin Sodium (Porcine) 0 unit 12/31/18 13:36 Heparin IV Q6HR PRN Low PTT Protocol Hydralazine HCl 10 mg 01/01/19 00:53 01/01/19 02:55 Apresoline IVP 10 mg Q6HR PRN Administration Blood Pressure - High Heparin Sodium/Sodium Chloride 250 mls @ 9.997 mls/hr 12/31/18 13:45 01/01/19 04:56 25,000 unit/ Sodium Chloride IV 11.6 units/kg/hr .Q24H [facility] 9.997 mls/hr Titration Protocol 11.6 UNITS/KG/HR Sodium Chloride 1,000 mls @ 75 mls/hr 12/31/18 17:00 01/01/19 06:45 Saline 0.9% IV Not Given .[id number] [facility] Letrozole 2.5 mg 12/31/18 21:00 12/31/18 21:35 Femara PO 2.5 mg HS [facility] Administration Levofloxacin 500 mg 12/31/18 21:00 12/31/18 21:35 Levaquin PO 01/04/19 21:01 500 mg HS [facility] Administration Nitroglycerin 0.4 mg 12/31/18 13:36 Nitrostat SUBLINGUAL Q5M PRN Chest Pain Sodium Chloride 10 ml 12/31/18 21:00 12/31/18 21:41 Saline Flush IV Not Given BID [facility] Valsartan 160 mg 12/31/18 21:00 12/31/18 21:35 Diovan PO 160 mg HS [facility] Administration Intake and Output 12/31/18 01/01/19 01/01/19 22:59 06:59 14:59 Intake Total 73.645 62.331 Balance 73.645 62.331 Intake: Intake, IV Titration 73.645 62.331 Amount Heparin Sod,Pork in 0.45% 73.645 62.331 NaCl 25,000 unit In 0.45 % NaCl 1 250ml.bag @ 11.6 UNITS/KG/HR 9.997 mls/hr IV .Q24H [facility] Rx#: [id number] Other: Voiding Method Toilet Toilet # Voids 2 01/01/19 03:46 12/31/18 11:45
[2019-01-01 19:26] VITALS: RESP 18
[2019-01-01] MEDS: LEVOFLOXACIN 500 MG TAB PO SCH (20:49)
[2019-01-01] MEDS: VALSARTAN 160 MG TAB PO SCH (20:50)
[2019-01-01] MEDS: LETROZOLE 2.5 MG TAB PO SCH (20:50)
[2019-01-01] MEDS: CARVEDILOL 3.125 MG TAB PO SCH (22:27)
[2019-01-02 07:12] LABS: Calcium 9.2 mg/dL (8.4-10.2); Potassium 4.1 mmol/L (3.5-5.1)
[2019-01-02 07:57] VITALS: BP 162/83; PULSE 73; TEMP 98.3
[2019-01-02] MEDS: ATORVASTATIN 80 MG TAB PO SCH (08:15)
[2019-01-02] MEDS: CARVEDILOL 12.5 MG TAB PO SCH (08:15)
[2019-01-02] MEDS: SODIUM CHLORIDE 0.9% 1,000 ML IV SCH (08:16)
[2019-01-02] MEDS ORDERED: ASPIRIN 81 MG PO SCH (09:00)
--- NOTE | 2019-01-02 10:07 | P.PN ---
Subjective This is a pleasant 68-year-old female past medical history significant for breast cancer status post mastectomy, renal cancer status post right nephrectomy, hypertension and seizure disorder. She denies history of coronary artery disease. We have been asked to see her in consultation secondary to abnormal stress test with chest pain suggestive of unstable angina. She underwent cardiac catheterization yesterday per Dr. Toro that revealed normal coronary arteries with normal LVEDP. Chest pain, shortness of breath and abnormal stress test thought to be related to uncontrolled hypertension. She is seen and examined sitting up in the chair in no acute distress. She states her headache subsided last evening. No chest pain, shortness of breath, dizziness or palpitations. She has been up ambulating without difficulty. No bleeding or pain in the right groin. Blood pressure this morning 162/83 heart rate 73 afebrile maintaining oxygen saturation on room air. Laboratory data reviewed, sodium 144, potassium 4.1, creatinine 0.86. Currently maintained on coreg 25 mg BID, procardia XL 60 mg daily, valsartan 160 mg daily. GENERAL: This is a 68-year-old female in no apparent distress at the time of my examination. HEENT: Head is atraumatic, normocephalic. Pupils are equal, round. Sclerae anicteric. Conjunctivae are clear. Mucous membranes of the mouth are moist. Neck is supple. There is no jugular venous distention. No carotid bruit is heard. LUNGS: Clear to auscultation no wheezes, rales or rhonchi. No chest wall tenderness is noted on palpation or with deep breathing. HEART: Regular rate and rhythm without murmurs, rubs or gallops. S1 and S2 heard. EXTREMITIES: No evidence of peripheral edema and no calf tenderness noted. Right groin soft and dry, no hematoma, bleeding or ecchymosis. ASSESSMENT Unstable angina Hypertension, uncontrolled History of renal carcinoma status post nephrectomy History of breast cancer status post mastectomy Dyslipidemia PLAN Continue current medical regimen for blood pressure control. Hydralazine has been discontinued. Increase atorvastatin to 20 mg daily. Follow up with Dr. Brock in 1 week. Nurse Practitioner note has been reviewed, I agree with a documented findings and plan of care. Patient was seen and examined. Objective - Vital Signs Vital signs: Vital Signs Temp 98.3 F 01/02/19 07:55 Pulse 73 01/02/19 08:00 Resp 18 08/16/19 08:00 BP 162/83 01/02/19 07:55 Pulse Ox 97 01/02/19 07:55 Intake & Output 01/01/19 01/02/19 01/02/19 18:59 06:59 18:59 Intake Total 50 240 Balance 50 240 Intake: IV 50 Oral 240 Other: Voiding Method Toilet Toilet Toilet # Voids 1 - Labs CBC & Chem 7: 01/01/19 03:46 01/02/19 06:38 Labs: Abnormal Lab Results - Last 24 Hours (Table) 01/02/19 Range/Units 06:38 Chloride 112 H (98-107) mmol/L Glucose 102 H (74-99) mg/dL
--- NOTE | 2019-01-02 15:27 | P.DS ---
Providers Date of admission: 01/02/19 06:28 Attending physician: Roman Cantor Consults: 12/31/18 13:36 Consult Physician Urgent Consulting Provider: Kristopher Prakash Consult Reason/Comments: ua, see stress test Do you want consulting provider notified?: Yes Primary care physician: Roman Cantor [facility] Course: 68-year-old the female was admitted for positive stress test patient underwent cardiac catheterization which did not show any significant atherosclerotic occlusive disease that will need intervention.patient is being hydrated because of unilateral kidney and the cardiology is according hydration tonight and possibility of discharge tomorrow 01/02/2019 Patient is clinically doing well at this time no overnight events. PHYSICAL EXAMINATION: GENERAL: The patient is alert and oriented x3, not in any acute distress. Well developed, well nourished. HEENT: Pupils are round and equally reacting to light. EOMI. No scleral icterus. No conjunctival pallor. Normocephalic, atraumatic. No pharyngeal erythema. No thyromegaly. CARDIOVASCULAR: S1 and S2 present. No murmurs, rubs, or gallops. PULMONARY: Chest is clear to auscultation, no wheezing or crackles. ABDOMEN: Soft, nontender, nondistended, normoactive bowel sounds. No palpable organomegaly. MUSCULOSKELETAL: No joint swelling or deformity. EXTREMITIES: No cyanosis, clubbing, or pedal edema. NEUROLOGICAL: Gross neurological examination did not reveal any focal deficits. SKIN: No rashes. Please refer to my progress note from as today for further details Plan - Discharge Summary Discharge Rx Participant: No New Discharge Prescriptions: New Atorvastatin [Lipitor] 20 mg PO HS #90 tab NIFEdipine XL [Procardia XL] 60 mg PO DAILY #90 tab.er.24 Continue Valsartan [Diovan] 160 mg PO HS Letrozole 2.5 mg PO HS Atorvastatin Calcium [Lipitor] 10 mg PO HS Carvedilol [Coreg] 25 mg PO BID Discontinued Levofloxacin [Levaquin] 500 mg PO HS Furosemide [Lasix] 40 mg PO DAILY PRN PRN Reason: Edema hydrALAZINE HCL [Apresoline] 25 mg PO BID Discharge Medication List Atorvastatin Calcium [Lipitor] 10 mg PO HS 12/31/18 [History] Carvedilol [Coreg] 25 mg PO BID 12/31/18 [History] Letrozole 2.5 mg PO HS 12/31/18 [History] Valsartan [Diovan] 160 mg PO HS 12/31/18 [History] Atorvastatin [Lipitor] 20 mg PO HS #90 tab 01/02/19 [Rx] NIFEdipine XL [Procardia XL] 60 mg PO DAILY #90 tab.er.24 01/02/19 [Rx] Follow up Appointment(s)/Referral(s): Roman Cantor MD [Primary Care Provider] - 3 Days Kiet Brock MD [STAFF PHYSICIAN] - 1 Week (Dr. Brock follow up and groin check-- January 12, 2019 9:30 am ) Discharge Disposition: HOME SELF-CARE
[2019-01-03] MEDS ORDERED: ATORVASTATIN 20 MG TAB PO SCH (21:00)
== END 2019-01-02 12:30 | disposition home or self-care (01) | DRG 287 ==
LOC: EC 11:15 → 1SOBS 13:36 → OBSVTOIN 01-02 06:28
PROVIDERS: ADMIT Family Medicine; ATTEND Family Medicine
PROC: B2111ZZ Fluoroscopy of Multiple Coronary Arteries using Low Osmolar Contrast (ICD-10-PCS; principal; 2019-01-01 12:10)
DX: I20.0 Unstable angina (principal); I10 Essential (primary) hypertension; E78.5 Hyperlipidemia, unspecified; G40.909 Epilepsy, unspecified, not intractable, without status epilepticus; J32.9 Chronic sinusitis, unspecified; R94.39 Abnormal result of other cardiovascular function study; Z85.3 Personal history of malignant neoplasm of breast; Z85.528 Personal history of other malignant neoplasm of kidney; Z90.49 Acquired absence of other specified parts of digestive tract; Z79.899 Other long term (current) drug therapy; Z90.10 Acquired absence of unspecified breast and nipple; Z98.51 Tubal ligation status
CPT/HCPCS: 36415; 71046; 80048; 80053; 80061; 82150; 83690; 83735; 83880; 84484; 85025; 85049; 85379; 85610; 85730; 93005; 93306; 93458; 93975; 96374; 99291

== ENCOUNTER → 2019-05-27 | Outpatient (CLI) | payer MEDICARE ==
--- NOTE | 2019-05-27 12:17 | XR ---
EXAMINATION TYPE: XR Hip Bilateral and AP pelvis DATE OF EXAM: 05/27/2019 COMPARISON: NONE HISTORY: Pain TECHNIQUE: A single AP view of the pelvis is obtained. Two views of the lateral hip are obtained. FINDINGS: There is no acute fracture/dislocation evident in the pelvis. The hip and sacroiliac join ts appear symmetric and unremarkable. The overlying soft tissue appears unremarkable. Two views of the lateral hip show no acute fracture or dislocation. There is severe arthropathy of th e left hip and moderate to severe arthropathy of the right hip. Surgical clips in the abdomen is seen and there is arthropathy of the right SI joint. No acute fracture. No dislocation. IMPRESSION: 1. Bilateral significant hip arthropathy greater on the left.
--- NOTE | 2019-05-27 12:19 | XR ---
EXAMINATION TYPE: XR cervical spine limited DATE OF EXAM: 05/27/2019 COMPARISON: NONE HISTORY: Pain TECHNIQUE: Four views are submitted. FINDINGS: The odontoid is intact. There are no compression deformities. The prevertebral soft tissue structur es are within normal limits. Diffuse osteopenia and multilevel facet arthropathy. Calcifications in the soft tissues of the neck are noted. Lung apices are clear. IMPRESSION: 1. Diffuse osteopenia and multilevel facet arthropathy. Recommend follow-up MRI..
--- NOTE | 2019-05-27 12:22 | XR ---
EXAM TYPE: LUMBAR SPINE X RAY SERIES COMPARISON: NONE HISTORY: Pain TECHNIQUE: 4 views are submitted. FINDINGS: Alignment is anatomic. The pedicles are intact. The transverse processes are intact. There is no d iffuse osteopenia. Surgical clips in the soft tissues noted. Multilevel mild degenerative disc diseas e with advanced facet arthropathy L4-5 and L5-S1. There may be a minimal anterolisthesis of L5 on S1 likely degenerative. IMPRESSION: 1. Diffuse osteopenia with multilevel degenerative disc disease. Advanced facet arthropathy in the lo wer lumbar spine. Foraminal encroachment L5-S1 suspected.
== END | disposition home or self-care (01) ==
LOC: RADXRMAIN 11:25
PROVIDERS: ATTEND Physician Assistant
DX: M51.36 Other intervertebral disc degeneration, lumbar region (principal); M46.92 Unspecified inflammatory spondylopathy, cervical region; M16.0 Bilateral primary osteoarthritis of hip
CPT/HCPCS: 72040; 72100; 73521

== ENCOUNTER → 2019-06-09 | Outpatient (CLI) | payer MEDICARE ==
--- NOTE | 2019-06-09 12:11 | MR ---
EXAMINATION TYPE: MR lumbar spine wo/w con DATE OF EXAM: 06/09/2019 COMPARISON: Lumbar spine x-ray May 27, 2019 HISTORY: Degeneration of lumbar intervertebral disc per order. History of breast cancer 2015 and left kidney cancer 2002. Sore lower back for 6 months causing pain into left lower extremity per patient. TECHNIQUE: Multiplanar, multisequence images of the lumbar spine is performed without and with IV contrast, util izing 10 mL intravenous Gadavist FINDINGS: Sagittal images of the lumbar spine show vertebral body heights and alignment to appear sat isfactory. Multilevel disc desiccation is seen but this space heights are fairly well maintained. Th e conus medullaris is normal in position and signal ending mid L1 level. The bone marrow signal inte nsity is within normal limits. Postcontrast images show locational enhancing lumbosacral nerve root w ithout suspicious nodular enhancement.. Axial images show T12-L1, L1-L2, L2-L3, and L3-L4 levels also appear within normal limits. Axial images at L4-L5 level shows mild facet degenerative changes and ligament flavum hypertrophy mickey aterally with tiny central disc protrusion minimally effacing anterior thecal sac. Bilateral neural f oramina are patent. Axial images at L5-S1 level show mild facet degenerative changes bilaterally. There is tiny central d isc protrusion with spinal canal is preserved. Bilateral neuroforamina are patent. Right kidney is not visualized and presumed surgically absent. Right kidney noted surgically absent A ugust 2018 ultrasound knot left kidney. Suggestion of a simple appearing thin-walled 1.3 cm cyst centrally left kidney axial image 25. There is mild pyelocaliectasis axial image 21 without distinct hydroureter. 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 IMPRESSION: Mild degenerative changes in lower lumbar spine. No suspicious findings seen to account f or patient's left-sided radiculopathy type symptoms.
== END | disposition home or self-care (01) ==
LOC: RADMRIMAIN 10:56
PROVIDERS: ATTEND Nurse Practitioner Family
DX: M51.36 Other intervertebral disc degeneration, lumbar region (principal)
CPT/HCPCS: 72158; A9585

== ENCOUNTER → 2022-02-27 | Outpatient (CLI) | payer MEDICARE ==
--- NOTE | 2022-02-27 15:35 | BD ---
EXAMINATION TYPE: Axial Bone Density DATE OF EXAM: 02/27/2022 COMPARISON: NONE CLINICAL HISTORY: 71 years year old Female. ICD-10 CODE: Z78.0 MENOPAUSAL STATE Height: 5'10 Weight: 204 FRAX RISK QUESTIONS: Family History (Parent hip fracture): Y Secondary Osteoporosis: RISK FACTORS HISTORY OF: Postmenopausal woman: Y MEDICATIONS: Additional Medications: nifedipine,carvediol,valsartan,atorvastastin Additional History: [id number], [id number] EXAM MEASUREMENTS: Bone mineral densitometry was performed using the [employer] System. Bone mineral density as measured about the Lumbar spine is: ----- L1-L4(G/cm2): 0.882 T Score Values are as follows: ----- L1: -2.2 ----- L2: -2.9 ----- L3: -2.0 ----- L4: -2.9 ----- L1-L4: -2.5 Bone mineral density about the R hip (g/cm2): 0.833 Bone mineral density about the L hip (g/cm2): 0.741 T Score values are as follows: -----R Neck: -1.5 -----L Neck: -2.1 -----R Total: -1.3 -----L Total: -1.6 FRAX%s: The graph provided illustrates a 13.5% chance for a major osteoporotic fx and a 3.4% chance f or the hips probability for fx in 10 years time. IMPRESSION: Borderline Osteopenia (T Score between -2.5 and -1). There is slightly increased risk of fracture and the patient may be considered for treatment. Re-Screen 2-5 years. NOTE: T-SCORE=SD OF THE YOUNG ADULT MEAN.
--- NOTE | 2022-03-08 09:11 | MM ---
Reason for Exam: Additional evaluation requested from prior study. Last mammogram was performed 3 year(s) and 0 month(s) ago. Patient History: Menarche at age 11. First Full-Term at age 19. Postmenopausal. 2014, Mastectomy on the Left side. 2014, Mastectomy on the Right side. 2015, Bilateral Implants. Risk Values: Rebecca 5 year model risk: 1.6%. NCI Lifetime model risk: 3.9%. Prior Study Comparison: 02/11/2017 Bilateral MG diag mamm implants [facility] w CAD - 2, [place]. 03/06/2018 Bilateral MG 3D diag mammo imp w/cad [facility], [place]. 03/19/2019 Bilateral MG 3D screening mammo w/cad, [place]. Tissue Density: The breast tissue is almost entirely fat. Findings: Analyzed By CAD. Subpectoral bilateral breast implants are redemonstrated. Surgical clips towards the right axilla are again seen. Anterior surgical clip in the left breast is redemonstrated. No suspicious new mass or distortion in either breast. Overall Assessment: Benign, BI-RAD 2 Management: Screening Mammogram of both breasts in 1 year. A clinical breast exam by your physician is recommended on an annual basis and results should be correlated with mammographic findings. This exam should not preclude additional follow-up of suspicious palpable abnormalities. Electronically signed and approved by: Yusuf Phelps M.D.
== END | disposition home or self-care (01) ==
LOC: RADMAMWWP 14:03
PROVIDERS: ATTEND Family Medicine
DX: R92.8 Other abnormal and inconclusive findings on diagnostic imaging of breast (principal); Z85.3 Personal history of malignant neoplasm of breast; Z78.0 Asymptomatic menopausal state
CPT/HCPCS: 77080; 77066; G0279; 77062

== ENCOUNTER → 2022-04-25 | Outpatient (CLI) | payer MEDICARE ==
[2022-04-25 18:17] LABS: Protein/Creatinine Ratio,Urine 0.292
[2022-04-25 18:44] LABS: Basophils # (A) 0.05 X 10*3/uL (0.00-0.10); Basophils % (A) 0.6 %; Eosinophils # (A) 0.25 X 10*3/uL (0.04-0.35); Eosinophils % (A) 3.1 %; HGB 13.2 g/dL (12.0-15.0); Immature Grans, Automated 0.2 %; Lymphocytes # (A) 1.73 X 10*3/uL (0.90-5.00); Lymphocytes % (A) 21.5 %; MCHC 31.4 g/dL (32.0-37.0); MCV 95.5 fL (80.0-97.0); Mean Platelet Volume 12.1 fL (9.5-12.2); Monocytes # (A) 0.62 X 10*3/uL (0.20-1.00); Monocytes % (A) 7.7 %; NRBC Per 100 WBC 0 /100 WBCS (0.0-0.0); Neutrophils # (A) 5.37 X 10*3/uL (1.80-7.70); Neutrophils % (A) 66.9 %; Platelet Count 229 X 10*3/uL (140-440); WBC 8.04 X 10*3/uL (4.50-10.00)
[2022-04-25 19:18] LABS: % Iron Saturation 25.77 (12.00-45.00); African American GFR (CKD) 57.3 (60.0-200.0); Anion Gap 12.8 mmol/L (10.00-18.00); BUN/Creat Ratio 18.55 Ratio (12.00-20.00); Blood Urea Nitrogen 20.4 mg/dL (9.0-27.0); Calcium 9.2 mg/dL (8.7-10.3); Carbon Dioxide 25.2 mmol/L (20.0-27.5); Magnesium 2.3 mg/dL (1.5-2.4); Non-African American GFR(CKD) 49.4 (60.0-200.0); Potassium 4.4 mmol/L (3.5-5.5); Uric Acid 5.7 mg/dL (2.9-7.7)
[2022-04-25 19:34] LABS: Albumin 4.2 g/dL (3.8-4.9)
[2022-04-25 21:06] LABS: Appearance,Urine Clear (Clear); Bilirubin,Urine Negative (Negative); Blood,Urine Negative (Negative); Color,Urine Yellow (Yellow); Ketones,Urine Negative (Negative); Nitrite,Urine Negative (Negative); Specific Gravity,Urine 1.008 (1.001-1.030); Urobilinogen,Urine 0.2 (0.2,1.0)
[2022-04-25 21:47] LABS: Bacteria,Urine None Seen /HPF (None Seen)
[2022-04-26 09:13] LABS: Creatinine,Urine Random 65.1 mg/dL
== END | disposition home or self-care (01) ==
LOC: LABWHC1 11:19
PROVIDERS: ATTEND Internal Medicine Nephrology
DX: N25.81 Secondary hyperparathyroidism of renal origin (principal); E55.9 Vitamin D deficiency, unspecified; M10.9 Gout, unspecified; N39.0 Urinary tract infection, site not specified; N18.30 Chronic kidney disease, stage 3 unspecified; D63.1 Anemia in chronic kidney disease; R80.9 Proteinuria, unspecified
CPT/HCPCS: 36415; 80048; 81001; 82040; 82306; 82570; 82728; 83540; 83550; 83735; 83970; 84100; 84156; 84550; 85025